=== PATIENT | female | born 1995 | race Hispanic/Latino ===

== ENCOUNTER 2017-10-15 20:02 | Emergency (ER) | payer MEDICAID ==
[2017-10-15 21:20] LABS: APPEARANCE,URINE Cloudy (CLEAR); BILIRUBIN,URINE Negative (NEGATIVE); COLOR,URINE Yellow (YELLOW); GLUCOSE, URINE (UA) Negative (NEGATIVE); KETONES,URINE Negative (NEGATIVE); LEUKOCYTE ESTERASE ,URINE Moderate (NEGATIVE); NITRATE,URINE Negative (NEGATIVE); OCCULT BLOOD,URINE Negative (NEGATIVE); PROTEIN,URINE Negative (NEGATIVE)
[2017-10-15 21:22] LABS: HCG,QUAL RESULT NEGATIVE (NEGATIVE)
[2017-10-15 21:40] LABS: BACTERIA,URINE Few /HPF (None Seen); RBC,URINE None Seen /HPF (0-1)
== END 2017-10-15 21:58 | disposition home or self-care (01) ==
LOC: EDH 20:02
DX: N39.0 Urinary tract infection, site not specified (principal)
CPT/HCPCS: 81001; 81025

== ENCOUNTER 2018-08-05 16:37 | Emergency (ER) | payer MEDICAID, OTHER ==
[2018-08-05 17:24] LABS: APPEARANCE,URINE SL CLOUDY (CLEAR); BILIRUBIN,URINE NEGATIVE (NEGATIVE); COLOR,URINE YELLOW (YELLOW); GLUCOSE, URINE (UA) NEGATIVE (NEGATIVE); KETONES,URINE 5 mg/dL (NEGATIVE); LEUKOCYTE ESTERASE ,URINE TRACE (NEGATIVE); NITRATE,URINE POSITIVE (NEGATIVE); OCCULT BLOOD,URINE NEGATIVE (NEGATIVE); PH,URINE 6.5 (5.0-8.0); PROTEIN,URINE NEGATIVE (NEGATIVE); UROBILINOGEN,URINE 0.2 mg/dL (0.2-1.0)
[2018-08-05] MEDS ORDERED: ONDANSETRON ODT 4 MG TAB ONE (17:24)
[2018-08-05 17:25] LABS: HCG,QUAL RESULT POSITIVE (NEGATIVE)
[2018-08-05 17:31] LABS: BACTERIA,URINE Many /HPF (None Seen); RBC,URINE None Seen /HPF (0-1)
== END 2018-08-05 18:01 | disposition home or self-care (01) ==
LOC: EDH 16:37
DX: N30.00 Acute cystitis without hematuria (principal); Z33.1 Pregnant state, incidental
CPT/HCPCS: 81001; 81025; 87804

== ENCOUNTER 2018-08-28 22:35 | Emergency (ER) | payer MEDICAID ==
[2018-08-28 23:15] LABS: APPEARANCE,URINE Clear (CLEAR); BILIRUBIN,URINE Negative (NEGATIVE); COLOR,URINE Yellow (YELLOW); GLUCOSE, URINE (UA) Negative (NEGATIVE); KETONES,URINE Negative (NEGATIVE); LEUKOCYTE ESTERASE ,URINE Small (NEGATIVE); NITRATE,URINE Negative (NEGATIVE); OCCULT BLOOD,URINE Negative (NEGATIVE); PH,URINE 6.5 (5.0-8.0); PROTEIN,URINE Negative (NEGATIVE)
[2018-08-28 23:33] LABS: BACTERIA,URINE None Seen /HPF (None Seen); RBC,URINE None Seen /HPF (0-1); SQUAMOUS EPITHELIAL CELL,UR Few /HPF (0-2); WBC,URINE 0-1 /HPF (0-1)
[2018-08-29 00:03] LABS: BASOPHILS % (AUTO) 0.7 % (0.0-5.0); EOSINOPHILS % (AUTO) 1.6 % (0.0-8.0); HEMATOCRIT 31.7 % (36-48); LYMPHOCYTES % (AUTO) 25.5 % (21.0-51.0); MEAN CORPUSCULAR HGB CONC 31.9 g/dL (32.0-36.0); MONOCYTES % (AUTO) 5.8 % (3.0-13.0); NEUTROPHILS % (AUTO) 66.4 % (40.0-77.0); PLATELET COUNT (AUTO) 402 K/uL (130-400); RED BLOOD CELL COUNT(AUTO) 4.59 MIL/uL (4.00-5.50); RED CELL DISTRIBUTION WIDTH 16.9 % (11.0-15.5); WHITE BLOOD COUNT (AUTO) 7.7 K/uL (4.8-10.8)
[2018-08-29] MEDS ORDERED: ONDANSETRON HCL 4 MG/2 ML VIAL ONE (00:03)
[2018-08-29 00:15] LABS: CREATININE 0.7 mg/dL (0.5-1.5); POTASSIUM 3.5 mmol/L (3.5-5.1)
[2018-08-29 00:20] LABS: ALBUMIN 3.5 g/dL (3.5-5.0); BILIRUBIN,TOTAL 0.2 mg/dL (0.2-1.0); TOTAL PROTEIN, SERUM 8.1 g/dL (6.0-8.3)
== END 2018-08-29 01:39 | disposition home or self-care (01) ==
LOC: EDH 22:35
DX: O99.011 Anemia complicating pregnancy, first trimester (principal); O26.891 Other specified pregnancy related conditions, first trimester; R10.31 Right lower quadrant pain; R10.32 Left lower quadrant pain; Z3A.09 9 weeks gestation of pregnancy
CPT/HCPCS: 36415; 76801; 80053; 81001; 84702; 85025; 96361; 96374; 99285; J2405

== ENCOUNTER 2019-06-02 05:30 | Day surgery (SDC) | payer MEDICAID ==
[2019-06-01 12:42] VITALS: BP 109/57
[2019-06-01 12:42] LABS: BASOPHILS % (AUTO) 0.6 % (0.0-5.0); EOSINOPHILS % (AUTO) 2.7 % (0.0-8.0); HEMATOCRIT 35.7 % (36-48); LYMPHOCYTES % (AUTO) 34.8 % (21.0-51.0); MEAN CORPUSCULAR HEMOGLOBIN 24.6 pg (27.0-33.0); MEAN CORPUSCULAR HGB CONC 31.1 g/dL (32.0-36.0); MEAN CORPUSCULAR VOLUME 79.2 fL (79-99); MONOCYTES % (AUTO) 5.7 % (3.0-13.0); PLATELET COUNT (AUTO) 342 K/uL (130-400); RED BLOOD CELL COUNT(AUTO) 4.51 MIL/uL (4.00-5.50); RED CELL DISTRIBUTION WIDTH 19.7 % (11.0-15.5); WHITE BLOOD COUNT (AUTO) 4.8 K/uL (4.8-10.8)
[~2019-06-02] VITALS: Ht 153.7 cm; Wt 62.1 kg
[2019-06-02] VITALS (15 sets, daily range): BP systolic 99–119; BP diastolic 61–76
[2019-06-02] MEDS ORDERED: SODIUM CHLORIDE 0.9% 1000ML 1,000 ML IV ONE (07:21)
[2019-06-02] MEDS ORDERED: DEXAMETHASONE SOD PHOSPHATE 10MG/ML 1ML VIAL ONE (07:45)
[2019-06-02] MEDS ORDERED: LIDOCAINE PF 2% 5ML ABBOJECT ONE (07:45)
[2019-06-02] MEDS ORDERED: PROPOFOL 10 MG/ML 20ML VIAL IV ONE (07:46)
[2019-06-02] MEDS ORDERED: FENTANYL CITRATE PF 50 MCG/1 ML 2ML VIAL ONE (07:46)
[2019-06-02] MEDS ORDERED: ONDANSETRON HCL 4 MG/2 ML VIAL ONE (07:46)
[2019-06-02] MEDS ORDERED: MIDAZOLAM HCL 1 MG/ML 2ML VIAL ONE (07:46)
[2019-06-02] MEDS ORDERED: ROCURONIUM 10MG/1ML SYR 10 MG/ML ML ONE (07:47)
[2019-06-02] MEDS ORDERED: GLYCOPYRROLATE 1 MG/5 ML SYRINGE ONE (08:15)
[2019-06-02] MEDS ORDERED: NEOSTIGMINE 5MG/5ML SYR IV ONE (08:16)
--- NOTE | 2019-06-02 09:30 | NUR ---
ASSESSMENT RECEIVED PT FROM PACU STAFF FRANDY SAM. PT AAOX3. DRSG TO ABD SOFT TO TOUCH. DRY AND INTACT. FRIEND AT BEDSIDE.
--- NOTE | 2019-06-02 10:05 | NUR ---
DISCHARGE ORAL AND WRITTEN DISCHARGE INSTRUCTIONS GIVEN TO PT AND PTS FRIEND ALONG WITH PRESCRIPTION. INSTRUCTED ON IMPORTANCE OF VOIDING WITHIN 6 HOURS. BOTH VERBALIZED UNDERSTANDING. NO OTHER QUESTIONS AT THIS TIME.
== END 2019-06-02 10:10 | disposition home or self-care (01) ==
LOC: DAH 05:30 → DAHIP 05:30 → UNDOADMIN 05:30 → DAH 10:10
PROVIDERS: ATTEND Obstetrics & Gynecology
DX: Z30.2 Encounter for sterilization (principal); D50.9 Iron deficiency anemia, unspecified; Z87.891 Personal history of nicotine dependence; Z83.3 Family history of diabetes mellitus
CPT/HCPCS: 36415; 58670; 84703; 85025; 86850; 86900; 86901; A4215; A4351; A4452; A4606; A6260; C1769 ×2; J1100; J2001; J2250; J2405; J2704; J2710; J3010; J3490; J7030

== ENCOUNTER 2021-01-08 22:53 | Emergency (ER) | payer MEDICAID, OTHER ==
[~2021-01-08] VITALS: Ht 149.9 cm; Wt 69.9 kg
[2021-01-08 23:17] VITALS: BP 132/76
[2021-01-08] MEDS ORDERED: KETOROLAC 60 MG VIAL (30MG/ML) ONE (23:25)
[2021-01-08] MEDS ORDERED: ACETAMINOPHEN 500 MG TABLET ONE (23:25)
[2021-01-08] MEDS ORDERED: KETOROLAC 60 MG VIAL (30MG/ML) IM ONE (23:30)
[2021-01-08] MEDS ORDERED: ACETAMINOPHEN 500 MG TABLET PO ONE (23:30)
[2021-01-09] MEDS ORDERED: ORPH100 PO (00:06)
[2021-01-09] MEDS ORDERED: NAPR-1180 PO (00:06)
[2021-01-09] MEDS ORDERED: LIDOP TD (00:06)
[2021-01-09 00:37] VITALS: BP 104/66
== END 2021-01-09 00:45 | disposition home or self-care (01) ==
LOC: EDH 22:53
DX: S20.211A Contusion of right front wall of thorax, initial encounter (principal); S00.12XA Contusion of left eyelid and periocular area, initial encounter; S00.11XA Contusion of right eyelid and periocular area, initial encounter; E66.9 Obesity, unspecified; Z79.1 Long term (current) use of non-steroidal anti-inflammatories (NSAID); Z68.31 Body mass index [BMI] 31.0-31.9, adult; Y08.89XA Assault by other specified means, initial encounter; Y93.89 Activity, other specified; Y92.89 Other specified places as the place of occurrence of the external cause; Y99.8 Other external cause status
CPT/HCPCS: 71046; 71100; 96372; 99284; J1885